=== PATIENT | male | born 1940 | race Caucasian/White ===

== ENCOUNTER → 2016-08-08 | Outpatient (CLI) | payer OTHER, BC ==
[~2016-08-08] VITALS: Ht 167.6 cm; Wt 77.1 kg
[~2016-08-08] MED LIST: ASPIR 8181 MG PO; CENTRUM SILVER1 EAC4 PO; ENALAPRIL MALEAT5 M1 PO; LIPITOR 20 MG T20 M1 PO; NORCO 10-325 T1 EACH PO; XARELTO10 MG PO
--- NOTE | ~2016-08-08 | S ---
[facility] [place] [address] SURGICAL PATH RPT PROCEDURE Name: KONRAD ROJAS Room #: REG [facility].#: [id number] Admission: 08/08/16 Date of : 42 Discharge: Report #: [id number] Path Case #: [id number] PATHOLOGY REPORT COLLECTION DATE: 08/08/2016 RECEIVED DATE: 08/08/2016 SUBMITTING PHYS: Dr. Arthur Ventura OTHER PHYS: Dr. Dania De La Cruz SPECIMEN(S) RECEIVED: A.Bx of proximal ascending colon-possible polyp at prev polypectomy site B.Polyp at 70 cm * * * * * * * * * * * * FINAL DIAGNOSIS: A. Large intestinal mucosa, proximal ascending colon-possible polyp at previous polypectomy site, endoscopic biopsy: - One fragment showing minute tubular adenoma without high-grade dysplasia. - Remainder fragments showing mild chronic inflammation and reactive changes. B. Polyp, at 70 cm, endoscopic biopsy: - Inflamed hyperplastic polyp. - Negative for dysplasia. PATHOLOGIST: Charisma Chew M.D. REPORT ELECTRONICALLY SIGNED BY: Charisma Chew M.D. DATE/TIME: 08/10/2016 16:24 * * * * * * * * * * * * GROSS PATHOLOGY: A. Received in formalin labeled "Konrad Rojas, biopsy of proximal ascending colon," are 4 segments of roger soft tissue measuring 0.5 x 0.3 x 0.2 cm in aggregate dimensions and ranging from 0.2 to 0.4 cm in maximum dimension. The specimen is submitted entirely in cassette A1. B. Received in formalin labeled "Konrad Rojas, polyp at 70 cm," are 5 segments of roger soft tissue measuring 0.5 x 0.4 x 0.2 cm in aggregate dimensions and ranging from 0.2 to 0.4 cm in maximum dimension. The specimen is submitted entirely in cassette B1. (KAH; 08/09/2016) CLINICAL HISTORY: Pre-op diagnosis: History of polyps [facility] [place] [address] SURGICAL PATH RPT PROCEDURE Name: KONRAD ROJAS Room #: [facility].#: [id number] Admission: 08/08/16 Date of : 42 Discharge: Report #: [id number] Path Case #: [id number] Post-op diagnosis: Colon polyps, diverticulosis, internal hemorrhoids INITIAL CPT CODE(S): A; 57095 B; 72750 Professional services performed by [facility] at [address] , [place] [address] Technical services performed by [facility] at [address] [place] [address], [facility] [address] [address]. [facility] [address] [place] [id number] PHONE: [phone] DIRECTOR: Benny Bautista M.D. * * * END OF REPORT * * *
--- NOTE | ~2016-08-08 | P ---
[facility] [place] [address] PROCEDURE REPORT Name: KONRAD SADLER Room #: REG [facility]#: [id number] Admission: 08/08/16 Attend Phys: Arthur Ventura MD Discharge: Date of : 42 Report #: [id number] THIS REPORT FOR: //name// CC: Dania Ventura BRIEF HISTORY: The patient is a 76-year-old male who has a history of a flat adenoma removed from the proximal ascending colon in the past. He presents today for high risk screening colonoscopy due to his history of colon polyp. PREOPERATIVE DIAGNOSIS: High risk screening colonoscopy. POSTOPERATIVE DIAGNOSES: 1. Questionable diminutive polyp versus fold at previous polypectomy site, proximal ascending colon. 2. Diminutive polyp at 70 cm. 3. Moderately severe diverticulosis coli. MEDICATIONS: Deep sedation with propofol per anesthesia. SPECIMENS: 1. Polyp from proximal ascending colon. 2. Polyp from 70 cm. ESTIMATED BLOOD LOSS: 3 mL. PROCEDURE: Colonoscopy to cecum and terminal ileum with biopsy. FINDINGS: Prior to propofol sedation, procedure of colonoscopy discussed with the patient as well as potential risks, benefits, and complications. He indicates he understands and desires to proceed. With the patient in left lateral decubitus position, digital examination was completed, which revealed no abnormalities. Subsequently, the ChiScan video colonoscope was introduced in the rectum, advanced under direct vision to the cecum. Done with minimal difficulty. The cecum was identified by the ileocecal valve and the appendiceal orifice. I was able to visualize the distal segment of terminal ileum, which was inspected and noted to be unremarkable. At that point, the scope was slowly withdrawn and careful circumferential views obtained including retroflexing the scope in the ascending colon. Upon slow withdrawal of the scope, the prep was noted to be good. The mucosa was within normal limits, normal vascular pattern, normal light reflex. As we withdrew the scope, 2 tattoos were seen in the proximal ascending colon. In the tattoo region, there was questionably diminutive polyp versus a thicken fold. This was essentially removed by biopsy forceps. Upon slow withdrawal of the scope, no additional abnormalities were seen until the scope was withdrawn to 70 cm, at [facility] [address] [place] [address] PROCEDURE REPORT Name: KONRAD SADLER Room #: REG [facility].#: [id number] Admission: 08/08/16 Attend Phys: Arthur Ventura MD Discharge: Date of : 42 Report #: [id number] which point a diminutive polyp was seen and removed by biopsy. As we withdrew the scope through the sigmoid colon, there was noted to be moderately severe diverticular disease without endoscopic evidence of diverticulitis. Scope was further withdrawn and no additional neoplastic or suspect neoplastic changes were seen. Scope was withdrawn in the rectum. Upon retroflexion, small internal hemorrhoids were seen. Scope was withdrawn. The patient tolerated the procedure well. CONDITION OF THE PATIENT UPON DISCHARGE: Following procedure, the patient drowsy, aroused, conversant and will be discharged home when fully ambulatory. INSTRUCTIONS TO THE PATIENT AND FAMILY AT THE TIME OF DISCHARGE: We will follow up on the path reports. If one or both of these are adenomas, he should return in 5 years. However, if neither are adenomas, then there would be minimal benefits to return in 10 years for a surveillance colonoscopy. However, colonoscopy completed on an as needed basis, based on the patient's symptoms. Last colonoscopy was 5 years ago. Withdrawal time from the cecum was 15 minutes. <ELECTRONICALLY SIGNED> By: Arthur Ventura MD 08/09/16 1217 [id number] Arthur Ventura MD /nt
== END ==
LOC: GI 08:59
DX: Z09 Encounter for follow-up examination after completed treatment for conditions other than malignant neoplasm (principal); D12.4 Benign neoplasm of descending colon; K57.30 Diverticulosis of large intestine without perforation or abscess without bleeding; K63.89 Other specified diseases of intestine; K64.8 Other hemorrhoids; I10 Essential (primary) hypertension; E78.00 Pure hypercholesterolemia, unspecified; M19.90 Unspecified osteoarthritis, unspecified site; Z85.828 Personal history of other malignant neoplasm of skin; Z87.891 Personal history of nicotine dependence
CPT/HCPCS: 62110; 62900

== ENCOUNTER → 2020-04-09 | Outpatient (CLI) | payer OTHER, BC | LOC: SJCVC 08:39 | PROVIDERS: ATTEND Internal Medicine | DX: I10 Essential (primary) hypertension (principal); I45.10 Unspecified right bundle-branch block; I44.0 Atrioventricular block, first degree; M19.90 Unspecified osteoarthritis, unspecified site; Z79.899 Other long term (current) drug therapy; Z87.891 Personal history of nicotine dependence ==

== ENCOUNTER → 2020-05-07 | Outpatient (CLI) | payer OTHER, BC | LOC: SJCVC 08:40 | PROVIDERS: ATTEND Internal Medicine | DX: R94.31 Abnormal electrocardiogram [ECG] [EKG] (principal); I45.10 Unspecified right bundle-branch block; I44.0 Atrioventricular block, first degree; E78.5 Hyperlipidemia, unspecified; I10 Essential (primary) hypertension; Z87.891 Personal history of nicotine dependence ==

== ENCOUNTER → 2020-06-04 | Outpatient (CLI) | payer OTHER, BC | LOC: SJCVC 08:37 | PROVIDERS: ATTEND Internal Medicine | DX: R94.31 Abnormal electrocardiogram [ECG] [EKG] (principal); I44.30 Unspecified atrioventricular block; I10 Essential (primary) hypertension; E78.5 Hyperlipidemia, unspecified; I44.0 Atrioventricular block, first degree; I45.10 Unspecified right bundle-branch block; M19.90 Unspecified osteoarthritis, unspecified site; Z79.899 Other long term (current) drug therapy; Z87.891 Personal history of nicotine dependence ==

== ENCOUNTER → 2020-12-04 | Outpatient (CLI) | payer OTHER, BC | LOC: SJCVC 08:52 | PROVIDERS: ATTEND Internal Medicine | DX: E78.00 Pure hypercholesterolemia, unspecified (principal); Z87.891 Personal history of nicotine dependence; Z79.899 Other long term (current) drug therapy ==

== ENCOUNTER → 2020-12-25 | Outpatient (CLI) | payer OTHER, BC | LOC: SJCVC 09:42 | PROVIDERS: ATTEND Internal Medicine | DX: R00.1 Bradycardia, unspecified (principal); E78.5 Hyperlipidemia, unspecified; I10 Essential (primary) hypertension; Z79.899 Other long term (current) drug therapy; Z87.891 Personal history of nicotine dependence ==